=== PATIENT | male | born 1945 | race American Indian/Alaskan Native ===

== ENCOUNTER 2019-12-24 20:21 | Inpatient (IN) | payer MEDICARE ==
[2019-12-24 20:54] LABS: Basophils % (Auto) 0.4 % (0.0-1.8); Eosinophils # (Auto) 0.2 K/mm3 (0.0-0.4); Eosinophils % (Auto) 2.4 % (0.0-4.3); Hematocrit 45.6 % (35.5-45.6); Hemoglobin 15.5 gm/dl (11.8-15.2); Lymphocytes # (Auto) 1.5 K/mm3 (1.2-5.4); Lymphocytes % (Auto) 18.5 % (13.4-35.0); Mean Corpuscular HGB Conc 34 % (32-34); Mean Corpuscular Volume 89 fl (84-94); Monocytes # (Auto) 0.6 K/mm3 (0.0-0.8); Monocytes % (Auto) 7.3 % (0.0-7.3); Platelet Count 313 K/mm3 (140-440); Red Blood Count 5.11 M/mm3 (3.65-5.03); Red Cell Distribution Width 13.7 % (13.2-15.2)
[2019-12-24 21:14] LABS: BUN/Creatinine Ratio 22; Blood Urea Nitrogen 20 mg/dL (9-20); Calcium 9.1 mg/dL (8.4-10.2); Hemolysis Index 7
[2019-12-24 21:36] LABS: Chol/HDL Ratio 5.97 %; HDL Cholesterol 38 mg/dL (40-59); LDL Cholesterol,Direct 172 mg/dL (50-130)
--- NOTE | 2019-12-24 21:54 | XRay Report ---
CHEST 2 VIEWS INDICATION / CLINICAL INFORMATION: Chest Pain. COMPARISON: None available. FINDINGS: SUPPORT DEVICES: None. HEART / MEDIASTINUM: No significant abnormality. LUNGS / PLEURA: No significant pulmonary or pleural abnormality. No pneumothorax. ADDITIONAL FINDINGS: No significant additional findings. IMPRESSION: No acute finding. Signer Name: Jose Alejandro Haley MD Signed: 12/24/2019 9:50 PM Workstation Name: [id number]
--- NOTE | 2019-12-24 22:22 | Emergency Department Report ---
ED Chest Pain HPI - General Chief Complaint: Chest Pain Stated Complaint: CHEST PAIN PUI?: No Time Seen by Provider: 12/24/19 22:10 Source: patient, EMS Mode of arrival: Ambulatory Limitations: No Limitations - History of Present Illness Initial Comments: Patient is a 74-year-old male that presents emergency room with complaints of chest pain or shortness of breath. Patient states that his chest pain started approximately 7 PM tonight. Patient states his chest pain was a 7 out of 10. Patient states after the nitro his chest pain has resolved. Patient states that the chest pain was better with rest and worse with exertion. Patient states he also has shortness of breath which was better with rest and worse with exertion. Patient states he took 325 aspirin and an 81 mg aspirin at the same time just prior to leaving his house. Patient states he was brought by EMS. Patient states that the nitro was given to him by EMS. Patient states 30 minutes after the nitro his pain resolved. MD Complaint: chest pain -: Sudden Onset: during rest Pain Location: substernal, left chest Pain Radiation: none Severity scale (0 -10): 7 Consistency: now resolved Improves With: nitroglycerin, rest Worsens With: exertion re: dyspnea. denies: nausea, vomting, diaphoresis, sense of impending doom Other Symptoms: denies: cough, fever, syncope, rash, acid taste in mouth, leg swelling, palpitations, burping Treatments Prior to Arrival: aspirin, nitroglycerin Aspirin use within the Past 7 Days: (0) No - Related Data On Oral Contraceptives: No Allergies Allergy/AdvReac Type Severity Reaction Status Date / Time No Known Allergies Allergy Verified 12/24/19 22:30 Heart Score - HEART Score History: Moderately suspicious EKG: Non-specific Age: > 65 Risk factors: No known risk factors Troponin: 1-3x normal limit HEART Score: 5 ED Review of Systems ROS: Stated complaint: CHEST PAIN Other details as noted in HPI Constitutional: denies: chills, fever Eyes: denies: eye pain, eye discharge, vision change ENT: denies: ear pain, throat pain Respiratory: shortness of breath. denies: cough, wheezing Cardiovascular: chest pain. denies: palpitations Endocrine: no symptoms reported Gastrointestinal: denies: abdominal pain, nausea, diarrhea Genitourinary: denies: urgency, dysuria Musculoskeletal: denies: back pain, joint swelling, arthralgia Skin: denies: rash, lesions Neurological: denies: headache, weakness, paresthesias Psychiatric: denies: anxiety, depression Hematological/Lymphatic: denies: easy bleeding, easy bruising ED Past Medical Hx - Past Medical History Previous Medical History?: No - Surgical History Past Surgical History?: Yes Additional Surgical History: Left shoulder 10/2019 - Family History Family history: no significant - Social History Smoking Status: Never Smoker Substance Use Type: Marijuana ED Physical Exam - General Limitations: No Limitations General appearance: alert, in no apparent distress - Head Head exam: Present: atraumatic, normocephalic - Eye Eye exam: Present: normal appearance - ENT ENT exam: Present: mucous membranes moist - Neck Neck exam: Present: normal inspection - Respiratory Respiratory exam: Present: normal lung sounds bilaterally. Absent: respiratory distress, wheezes, rales - Cardiovascular Cardiovascular Exam: Present: regular rate, normal rhythm. Absent: systolic murmur, diastolic murmur, rubs, gallop - GI/Abdominal GI/Abdominal exam: Present: soft, normal bowel sounds - Rectal Rectal exam: Present: deferred - Extremities Exam Extremities exam: Present: normal inspection - Back Exam Back exam: Present: normal inspection - Neurological Exam Neurological exam: Present: alert, oriented X3 - Psychiatric Psychiatric exam: Present: normal affect, normal mood - Skin Skin exam: Present: warm, dry, intact, normal color. Absent: rash ED Course Vital Signs 12/24/19 12/24/19 20:28 22:45 Temperature 98.1 F Pulse Rate 105 H 80 Respiratory 18 Rate Blood Pressure 140/89 152/88 O2 Sat by Pulse 96 Oximetry - Reevaluation(s) Reevaluation #1: I discussed all results with patient. I discussed plan of care with patient. Patient agrees with plan of care and admission. Patient to be admitted to the hospitalist service. 12/24/19 22:28 - Consultations Consultation #1: Discussed case with Dr. Garg, cardiology. Dr. Garg recommends heparin drip, Nitropaste, beta-linwood and statin and admission to the hospitalist. 12/24/19 22:19 Consultation #2: Hospitalist consulted for admission. Hospitalist to admit patient. 12/24/19 22:28 EARNEST score - Earnest Score Age > 65: (1) Yes Aspirin use within the Past 7 Days: (0) No 3 or more CAD Risk Factors: (0) No 2 or more Angina events in past 24 hrs: (0) No Known CAD with more than 50% Stenosis: (0) No Elevated Cardiac Markers: (1) Yes ST Deviation Greater than 0.5mm: (0) No EARNEST Score: 2 ED Medical Decision Making - Lab Data Result diagrams: 12/24/19 22:45 12/24/19 20:43 - EKG Data -: EKG Interpreted by Me EKG shows normal: sinus rhythm, axis, intervals, QRS complexes, ST-T waves Rate: normal - Radiology Data Radiology results: report reviewed CHEST 2 VIEWS INDICATION / CLINICAL INFORMATION: Chest Pain. COMPARISON: None available. FINDINGS: SUPPORT DEVICES: None. HEART / MEDIASTINUM: No significant abnormality. LUNGS / PLEURA: No significant pulmonary or pleural abnormality. No pneumo thorax. ADDITIONAL FINDINGS: No significant additional findings. IMPRESSION: No acute finding. - Medical Decision Making Patient is a 74-year-old male that presents emergency room with complaints of chest pain and shortness of breath. Patient states his chest pain started at 7 PM the day of visit. Patient states he took aspirin and was given nitro by EMS. Patient states 30 minutes after taking the nitro his pain resolved. Patient's labs were done and were essentially unremarkable except for elevated troponin. EKG shows no STEMI. I discussed the case with cardiology and cardiology recommends medical admission and place the patient on heparin drip, Lipitor, Nitropaste. Cardiology also recommends admission to the hospitalist service and n.p.o. for possible cath in the morning. Patient placed on a heparin drip according to the heparin protocol. Patient admitted to the hospitalist service and into the ICU. - Differential Diagnosis NSTEMI, chest pain, ACS, shortness of breath Critical Care Time: Yes Critical care time in (mins) excluding proc time.: 45 Critical care attestation.: If time is entered above; I have spent that time in minutes in the direct care of this critically ill patient, excluding procedure time. Critical Care Time: 45 minutes ED Disposition Clinical Impression: NSTEMI (non-ST elevated myocardial infarction), Elevated troponin, SOB (shortness of breath) Chest pain Qualifiers: Chest pain type: unspecified Qualified Code(s): R07.9 - Chest pain, unspecified Hyperlipemia Qualifiers: Hyperlipidemia type: unspecified Qualified Code(s): E78.5 - Hyperlipidemia, unspecified Disposition: 09 OP ADMIT IP TO THIS HOSP Is pt being admited?: Yes Does the pt Need Aspirin: No Condition: Critical Time of Disposition: 22:47
[2019-12-24] MEDS ORDERED: HEPARIN 10,000 UNITS/10 ML VIAL IV ONE (22:25)
[2019-12-24] MEDS ORDERED: NITROGLYCERIN 2% OINT 1 GM TP ONE (22:25)
[2019-12-24] MEDS: HEPARIN/ 0.45% NACL DRIP 25,000 UNIT/500 ML BAG IV SCH (22:45)
[2019-12-24 23:00] LABS: Hematocrit 44.5 % (35.5-45.6); Hemoglobin 14.8 gm/dl (11.8-15.2)
[2019-12-24 23:11] LABS: INR 1.24 (0.87-1.13)
[2019-12-25] MEDS ORDERED: NITROGLYCERIN 0.4 MG TAB SUBL SL PRN (00:06)
[2019-12-25] MEDS ORDERED: MORPHINE 2 MG/1 ML INJ IV PRN (00:06)
--- NOTE | 2019-12-25 00:56 | History and Physical Report ---
History of Present Illness Date of examination: 12/24/19 Date of admission: 12/24/19 22:44 Chief complaint: Chest pain History of present illness: 74-year-old male with no significant past medical history presenting to the emergency room today complaining of shortness of breath and chest pain. Shortness of breath was said to have started suddenly while climbing the staircase at home. He thereafter started having chest pain which was left- sided. Chest pain is said to be worse on exertion and feels better with resting. On a scale of 10 pain was about 7/10. He took some aspirin prior to coming to the emergency room and was also given some sublingual nitro by EMS in route to the hospital. Patient felt much better upon arrival. Patient indicates that he had a similar episode about a week ago and he took some aspirin and the pain was said to have resolved. He denies any fever or chills, no nausea vomiting, no abdominal pain, no headache or dizziness. His work-up in the emergency room was significant for elevated troponin. He had no significant EKG findings. Patient's results were discussed with the water and sewer systems superintendent on-call by the ER physician patient has been placed on insulin drip and beta-linwood. Past History Past Medical History: No medical history Past Surgical History: Other (Left shoulder surgery) Social history: other (Occasional marijuana). denies: smoking, alcohol abuse Family history: no significant family history Medications and Allergies Allergies Allergy/AdvReac Type Severity Reaction Status Date / Time No Known Allergies Allergy Verified 12/24/19 22:30 Home Medications Medication Instructions Recorded Confirmed Last Taken Type Sertraline [Zoloft] 150 mg PO QDAY 12/25/19 12/25/19 Unknown History Zolpidem 10 mg PO QHS 12/25/19 12/25/19 Unknown History Active Meds: Active Medications Aspirin (Ecotrin) 325 mg PO QDAY LULA Atorvastatin Calcium (Lipitor) 80 mg PO ONCE ONE Stop: 12/25/19 22:01 Heparin Sodium/Sodium Chloride (Heparin/ 0.45% Nacl-25,000 Unit/500 Ml) 25,000 unit in 500 mls @ 20 mls/hr IV TITRATE LULA; Protocol Last Admin: 12/24/19 22:45 Dose: 1,000 units/hr, 20 mls/hr Documented by: Morphine Sulfate (Morphine) 2 mg IV Q5MIN PRN PRN Reason: Chest Pain unrelieved by NTG Nitroglycerin (Nitrostat) 0.4 mg SL Q5M PRN PRN Reason: Chest Pain Sodium Chloride (Sodium Chloride Flush Syringe 10 Ml) 10 ml IV BID LULA Sodium Chloride (Sodium Chloride Flush Syringe 10 Ml) 10 ml IV PRN PRN PRN Reason: LINE FLUSH Review of Systems Constitutional: no fever, no chills Cardiovascular: chest pain, shortness of breath, no palpitations, no syncope, no lightheadedness Respiratory: no cough, no congestion Gastrointestinal: no abdominal pain, no nausea, no vomiting, no diarrhea Genitourinary Male: no dysuria, no hematuria Musculoskeletal: no neck pain, no low back pain Integumentary: no rash, no pruritis Neurological: no headaches, no confusion Exam - Constitutional Vitals: Temp Pulse Resp BP Pulse Ox 98.1 F 80 18 152/88 96 12/24/19 20:28 12/24/19 22:45 12/24/19 20:28 12/24/19 22:45 12/24/19 20:28 General appearance: Present: no acute distress, well-nourished - EENT Eyes: Present: PERRL, EOM intact ENT: hearing intact, clear oral mucosa, dentition normal - Neck Neck: Present: supple, normal ROM - Respiratory Respiratory effort: normal Respiratory: bilateral: CTA - Cardiovascular Rhythm: regular Heart Sounds: Present: S1 & S2 - Extremities Extremities: no ischemia, pulses intact, No edema, Full ROM Peripheral Pulses: within normal limits - Abdominal General gastrointestinal: Present: soft, non-tender, non-distended, normal bowel sounds - Musculoskeletal Musculoskeletal: strength equal bilaterally - Psychiatric Psychiatric: appropriate mood/affect, intact judgment & insight, cooperative - Neurologic Neurologic: CNII-XII intact, moves all extremities Results - Labs CBC & Chem 7: 12/25/19 01:33 12/25/19 01:33 Labs: Abnormal lab results 12/24/19 12/24/19 12/24/19 Range/Units 20:43 20:43 22:45 RBC 5.11 H (3.65-5.03) M/mm3 Hgb 15.5 H (11.8-15.2) gm/dl Seg Neutrophils % 71.4 H (40.0-70.0) % PT (12.2-14.9) Sec. INR (0.87-1.13) APTT (24.2-36.6) Sec. Glucose 124 H (75-100) mg/dL Troponin T 0.059 H 0.079 H D (0.00-0.029) ng/mL Triglycerides 168 H (2-149) mg/dL Cholesterol 227 H (50-199) mg/dL LDL Cholesterol Direct 172 H (50-130) mg/dL HDL Cholesterol 38 L (40-59) mg/dL 12/24/19 Range/Units 22:45 RBC (3.65-5.03) M/mm3 Hgb (11.8-15.2) gm/dl Seg Neutrophils % (40.0-70.0) % PT 15.3 H (12.2-14.9) Sec. INR 1.24 H (0.87-1.13) APTT 206.0 H* (24.2-36.6) Sec. Glucose (75-100) mg/dL Troponin T (0.00-0.029) ng/mL Triglycerides (2-149) mg/dL Cholesterol (50-199) mg/dL LDL Cholesterol Direct (50-130) mg/dL HDL Cholesterol (40-59) mg/dL Assessment and Plan - Patient Problems (1) NSTEMI (non-ST elevated myocardial infarction) Current Visit: Yes Status: Acute Plan to address problem: Patient admitted into the intensive care unit and has been started on heparin drip. We will schedule for echocardiogram and stress test in the a.m. We will place a consult to cardiology for further evaluation and recommendation. (2) DVT prophylaxis Current Visit: Yes Status: Acute Plan to address problem: Patient currently on anticoagulation. (3) Full code status Current Visit: Yes Status: Acute
[2019-12-25] MEDS ORDERED: METOPROLOL TARTRATE 5 MG/5 ML INJ IV ONE ×2 (01:08→01:44)
[2019-12-25 01:49] LABS: Basophils % (Auto) 0.6 % (0.0-1.8); Eosinophils # (Auto) 0.2 K/mm3 (0.0-0.4); Eosinophils % (Auto) 2.6 % (0.0-4.3); Hematocrit 42.4 % (35.5-45.6); Hemoglobin 14.3 gm/dl (11.8-15.2); Mean Corpuscular HGB Conc 34 % (32-34); Mean Corpuscular Volume 90 fl (84-94); Monocytes # (Auto) 0.6 K/mm3 (0.0-0.8); Monocytes % (Auto) 7.1 % (0.0-7.3); Platelet Count 279 K/mm3 (140-440); Red Blood Count 4.73 M/mm3 (3.65-5.03); Red Cell Distribution Width 13.4 % (13.2-15.2)
[2019-12-25 02:07] LABS: BUN/Creatinine Ratio 21; Blood Urea Nitrogen 19 mg/dL (9-20); Calcium 8.9 mg/dL (8.4-10.2); Hemolysis Index 3
--- NOTE | 2019-12-25 08:19 | Progress Note ---
Hospitalist Physical - Constitutional Vitals: Temp Pulse Resp BP Pulse Ox 98.1 F 62 16 113/74 96 12/24/19 20:28 12/25/19 06:00 12/25/19 06:00 12/25/19 06:00 12/25/19 06:00 General appearance: Present: no acute distress, well-nourished EARNEST score - Earnest Score Age > 65: (1) Yes Aspirin use within the Past 7 Days: (0) No 3 or more CAD Risk Factors: (0) No 2 or more Angina events in past 24 hrs: (0) No Known CAD with more than 50% Stenosis: (0) No Elevated Cardiac Markers: (1) Yes ST Deviation Greater than 0.5mm: (0) No EARNEST Score: 2 Results - Labs CBC & Chem 7: 12/25/19 01:33 12/25/19 01:33 Labs: Laboratory Last Values WBC 8.0 K/mm3 (4.5-11.0) 12/25/19 01:33 RBC 4.73 M/mm3 (3.65-5.03) 12/25/19 01:33 Hgb 14.3 gm/dl (11.8-15.2) 12/25/19 01:33 Hct 42.4 % (35.5-45.6) 12/25/19 01:33 MCV 90 fl (84-94) 12/25/19 01:33 MCH 30 pg (28-32) 12/25/19 01:33 MCHC 34 % (32-34) 12/25/19 01:33 RDW 13.4 % (13.2-15.2) 12/25/19 01:33 Plt Count 279 K/mm3 (140-440) 12/25/19 01:33 Lymph % (Auto) 25.0 % (13.4-35.0) 12/25/19 01:33 [place] % (Auto) 7.1 % (0.0-7.3) 12/25/19 01:33 Eos % (Auto) 2.6 % (0.0-4.3) 12/25/19 01:33 Baso % (Auto) 0.6 % (0.0-1.8) 12/25/19 01:33 Lymph # 2.0 K/mm3 (1.2-5.4) 12/25/19 01:33 [place] # 0.6 K/mm3 (0.0-0.8) 12/25/19 01:33 Eos # 0.2 K/mm3 (0.0-0.4) 12/25/19 01:33 Baso # 0.0 K/mm3 (0.0-0.1) 12/25/19 01:33 Seg Neutrophils % 64.7 % (40.0-70.0) 12/25/19 01:33 Seg Neutrophils # 5.2 K/mm3 (1.8-7.7) 12/25/19 01:33 PT 15.3 Sec. (12.2-14.9) H 12/24/19 22:45 INR 1.24 (0.87-1.13) H 12/24/19 22:45 APTT 206.0 Sec. (24.2-36.6) H* 12/24/19 22:45 Heparin Anti-Xa Level 0.39 U.I./ml (0.3-0.7) 12/25/19 05:41 Sodium 142 mmol/L (137-145) 12/25/19 01:33 Potassium 3.9 mmol/L (3.6-5.0) 12/25/19 01:33 Chloride 103.1 mmol/L (98-107) 12/25/19 01:33 Carbon Dioxide 26 mmol/L (22-30) 12/25/19 01:33 Anion Gap 17 mmol/L 12/25/19 01:33 BUN 19 mg/dL (9-20) 12/25/19 01:33 Creatinine 0.9 mg/dL (0.8-1.5) 12/25/19 01:33 Estimated GFR > 60 ml/min 12/25/19 01:33 BUN/Creatinine Ratio 21 % 12/25/19 01:33 Glucose 121 mg/dL (75-100) H 12/25/19 01:33 Calcium 8.9 mg/dL (8.4-10.2) 12/25/19 01:33 Troponin T 0.079 ng/mL (0.00-0.029) H 12/25/19 05:41 Triglycerides 168 mg/dL (2-149) H 12/24/19 20:43 Cholesterol 227 mg/dL (50-199) H 12/24/19 20:43 LDL Cholesterol Direct 172 mg/dL (50-130) H 12/24/19 20:43 HDL Cholesterol 38 mg/dL (40-59) L 12/24/19 20:43 Cholesterol/HDL Ratio 5.97 % 12/24/19 20:43 Active Medications - Current Medications Current Medications: Generic Name Dose Route Start Last Admin Trade Name Freq PRN Reason Stop Dose Admin Aspirin 325 mg 12/26/19 10:00 Ecotrin PO QDAY LULA Atorvastatin Calcium 80 mg 12/25/19 22:00 Lipitor PO 12/25/19 22:01 ONCE ONE Heparin Sodium/Sodium Chloride 25,000 unit in 500 mls @ 20 mls/hr 12/24/19 23:00 12/24/19 22:45 Heparin/ 0.45% Nacl-25,000 Unit/500 Ml IV 1,000 units/hr TITRATE LULA 20 mls/hr Administration Protocol 1,000 UNITS/HR Morphine Sulfate 2 mg 12/25/19 00:06 Morphine IV Q5MIN PRN Chest Pain unrelieved by NTG Nitroglycerin 0.4 mg 12/25/19 00:06 Nitrostat SL Q5M PRN Chest Pain Sodium Chloride 10 ml 12/25/19 10:00 Sodium Chloride Flush Syringe 10 Ml IV BID LULA Sodium Chloride 10 ml 12/25/19 00:06 Sodium Chloride Flush Syringe 10 Ml IV PRN PRN LINE FLUSH
[2019-12-25] MEDS ORDERED: SODIUM CHLORIDE 0.9% 500 ML 500 ML IV SCH ×2 (10:00→11:30)
[2019-12-25] MEDS ORDERED: SODIUM CHLORIDE 0.9% 500 ML 500 ML ONE (10:00)
--- NOTE | 2019-12-25 10:07 | Consultation ---
History of Present Illness Consult date: 12/25/19 Requesting physician: CINDY SORIANO Consult reason: chest pain History of present illness: The patient is a 74-year-old male with no significant past medical history. He sees a PCP at the [facility]. He presented with c/o chest pain and SOB. Patient states that his chest pain started at approximately 7 PM last night. Pt states that he was walking up some stairs when he noted the onset of his chest pain. Pt describes his chest pain as a midsternal and substernal pressure which was associated with significant SOB. He sat down and the pain did not resolve and thus he decided to call EMS. Patient states his chest pain was a 7 out of 10. Patient states he took 325 aspirin and an 81 mg aspirin at the same time just prior to leaving his house. He was given SL nitro x 1 per EMS en route to ED and he states that his chest pain then resolved. Pt reports one additional episode of chest pain which occurred 2 weeks ago while he was also exerting himself. The pain was alleviated by sitting down to rest. Pt saw his PCP after that episode of chest pain and was scheduled for stress testing at the [facility] on 01/05/2020. Pt denies any palpitations, n/v, diaphoresis, dizziness or syncope. Pt denies any known prior cardiac issues or cardiac w/u. Following arrival, pt noted to have minimally elevated Kay and abnormal ECG c/w ischemia. He was initiated on heparin gtt overnight. Past History Past Medical History: No medical history Past Surgical History: Other (Left shoulder surgery) Social history: other (Occasional marijuana). denies: smoking, alcohol abuse Family history: no significant family history Medications and Allergies Allergies Allergy/AdvReac Type Severity Reaction Status Date / Time No Known Allergies Allergy Verified 12/24/19 22:30 Home Medications Medication Instructions Recorded Confirmed Last Taken Type Sertraline [Zoloft] 150 mg PO QDAY 12/25/19 12/25/19 Unknown History Zolpidem 10 mg PO QHS 12/25/19 12/25/19 Unknown History Active Meds: Active Medications Aspirin (Ecotrin) 325 mg PO QDAY LULA Atorvastatin Calcium (Lipitor) 40 mg PO QHS [facility] Heparin Sodium/Sodium Chloride (Heparin/ 0.45% Nacl-25,000 Unit/500 Ml) 25,000 unit in 500 mls @ 20 mls/hr IV TITRATE LULA; Protocol Last Admin: 12/24/19 22:45 Dose: 1,000 units/hr, 20 mls/hr Documented by: Sodium Chloride (Nacl 0.9% 500 Ml) 500 mls @ 50 mls/hr IV DIRECT LULA Stop: 12/25/19 19:59 Morphine Sulfate (Morphine) 2 mg IV Q5MIN PRN PRN Reason: Chest Pain unrelieved by NTG Nitroglycerin (Nitrostat) 0.4 mg SL Q5M PRN PRN Reason: Chest Pain Sodium Chloride (Sodium Chloride Flush Syringe 10 Ml) 10 ml IV BID LULA Sodium Chloride (Sodium Chloride Flush Syringe 10 Ml) 10 ml IV PRN PRN PRN Reason: LINE FLUSH Review of Systems Constitutional: no weight loss, no weight gain, no fever, no chills, no sweats Ears, nose, mouth and throat: no ear pain, no nose pain, no sinus pressure, no sinus pain Cardiovascular: chest pain, shortness of breath, dyspnea on exertion, no orthopnea, no palpitations, no rapid/irregular heart beat, no edema, no syncope, no lightheadedness, no high blood pressure, no leg edema Respiratory: shortness of breath, dyspnea on exertion, no cough, no congestion, no wheezing, no pain on inspiration Gastrointestinal: no abdominal pain, no nausea, no vomiting, no diarrhea, no constipation, no change in bowel habits Genitourinary Male: no dysuria, no hematuria, no flank pain, no discharge, no urinary frequency, no urinary hesitancy Musculoskeletal: no neck stiffness, no neck pain, no shooting arm pain, no arm numbness/tingling, no low back pain, no shooting leg pain Integumentary: no rash, no pruritis, no redness, no sores, no wounds Neurological: no head injury, no paralysis, no weakness, no parathesias, no numbness, no tingling, no seizures, no syncope Psychiatric: no anxiety Endocrine: no cold intolerance, no heat intolerance Hematologic/Lymphatic: no easy bruising Allergic/Immunologic: no urticaria Physical Examination Vital Signs Temp Pulse Resp BP Pulse Ox 98.1 F 105 H 18 140/89 96 12/24/19 20:28 12/24/19 20:28 12/24/19 20:28 12/24/19 20:28 12/24/19 20:28 General appearance: no acute distress HEENT: Positive: PERRL, Normocephaly, Mucus Membranes Moist Neck: Positive: neck supple, trachea midline Cardiac: Positive: Reg Rate and Rhythm, S1/S2 Lungs: Positive: Decreased Breath Sounds Neuro: Positive: Grossly Intact Abdomen: Negative: Tender Skin: Negative: Rash Musculoskeletal: No Pain Extremities: Absent: edema Results 12/25/19 01:33 12/25/19 01:33 Coagulation 12/24/19 Range/Units 22:45 PT 15.3 H (12.2-14.9) Sec. INR 1.24 H (0.87-1.13) APTT 206.0 H* (24.2-36.6) Sec. Lipids 12/24/19 Range/Units 20:43 Triglycerides 168 H (2-149) mg/dL Cholesterol 227 H (50-199) mg/dL HDL Cholesterol 38 L (40-59) mg/dL Cholesterol/HDL Ratio 5.97 % CBC 12/24/19 12/24/19 12/25/19 Range/Units 20:43 22:45 01:33 WBC 7.9 8.0 (4.5-11.0) K/mm3 RBC 5.11 H 4.73 (3.65-5.03) M/mm3 Hgb 15.5 H 14.8 14.3 (11.8-15.2) gm/dl Hct 45.6 44.5 42.4 (35.5-45.6) % Plt Count 313 294 279 (140-440) K/mm3 Lymph # 1.5 2.0 (1.2-5.4) K/mm3 [place] # 0.6 0.6 (0.0-0.8) K/mm3 Eos # 0.2 0.2 (0.0-0.4) K/mm3 Baso # 0.0 0.0 (0.0-0.1) K/mm3 Comprehensive Metabolic Panel 12/24/19 12/25/19 Range/Units 20:43 01:33 Sodium 142 142 (137-145) mmol/L Potassium 4.0 3.9 (3.6-5.0) mmol/L Chloride 103.5 103.1 (98-107) mmol/L Carbon Dioxide 23 26 (22-30) mmol/L BUN 20 19 (9-20) mg/dL Creatinine 0.9 0.9 (0.8-1.5) mg/dL Glucose 124 H 121 H (75-100) mg/dL Calcium 9.1 8.9 (8.4-10.2) mg/dL - Imaging and Cardiology Echo: pending Cardiac cath: pending EKG: report reviewed, image reviewed EKG interpretations - Telemetry EKG Rhythm: Sinus Rhythm - EKG Sinus rhythms and dysrhythmias: sinus rhythm Repolarization changes or abnormalities: ST or T wave suggestive of ischemia Assessment and Plan Coronary angiography recommended in setting of NSTEMI. Indications, potential risks and benefits of LHC reviewed with pt and he is agreeable to proceed with LHC today. Await findings. Obtain echo. Further recs to follow per hospital course. The patient has been seen in conjunction with Dr. Porras who agrees with the assessment and plan of care. - Patient Problems (1) NSTEMI (non-ST elevated myocardial infarction) Current Visit: Yes Status: Acute (2) Hyperlipemia Current Visit: Yes Status: Chronic Qualifiers: Hyperlipidemia type: unspecified Qualified Code(s): E78.5 - Hyperlipidemia, unspecified
[2019-12-25] MEDS ORDERED: HEPARIN/NS 5000 UNIT/500ML 1,000 ML IR ONE (10:17)
[2019-12-25] MEDS ORDERED: HEPARIN 10,000 UNITS/10 ML VIAL ONE (10:17)
[2019-12-25] MEDS ORDERED: VERAPAMIL 5 MG/2 ML INJ ONE (10:17)
[2019-12-25] MEDS ORDERED: ASPIRIN EC 325 MG TAB PO ONE ×2 (10:27→11:00)
[2019-12-25] MEDS: fentaNYL 100 MCG/2 ML INJ ONE ×2 (10:58→11:02)
[2019-12-25] MEDS: MIDAZOLAM 2 MG/2 ML INJ ONE ×2 (10:58→11:02)
[2019-12-25] MEDS: LIDOCAINE (2%) 20 MG/1 ML VIAL 20 ML MDV INFILTRATI ONE ×2 (11:00→11:14)
[2019-12-25] MEDS ORDERED: NITROGLYCERIN SYRINGE 3 ML ONE (11:08)
[2019-12-25] MEDS ORDERED: HEPARIN/NS 5000 UNIT/500ML 500 ML IR ONE (11:28)
[2019-12-25] MEDS ORDERED: SODIUM CHLORIDE 0.9% 1000 ML 1,000 ML ONE (11:39)
--- NOTE | 2019-12-25 11:50 | Event Note ---
Date: 12/25/19 S/p [facility] this AM which showed multi vessel CAD, IABP placed. Pt to tx to [facility] for possible revascularization. Gavino TORREZ NP / DR. HAMPTON
[2019-12-25] MEDS ORDERED: DOPamine/D5W 800 MG/250 ML 0 MG/0 ML BAG IV ONE (12:00)
[2019-12-25] MEDS ORDERED: NITROGLYCERIN DRIP 50 MG/250 ML BOTTLE ONE (12:00)
--- NOTE | 2019-12-25 12:07 | Event Note ---
Date: 12/25/[address] [facility] this AM which showed multi vessel CAD, IABP was placed. Patient to transfer to [facility] for possible re-vascularization.
[2019-12-25] MEDS: HEPARIN/ 0.45% NACL DRIP 25,000 UNIT/500 ML BAG IV SCH (12:15)
--- NOTE | 2019-12-25 13:22 | Cardiac Catherization Report ---
CARDIAC CATHETERIZATION REPORT INDICATION FOR PROCEDURE: The patient is a 74-year-old -[place] gentleman with no significant past medical history except that he has a recent rotator cuff surgery performed. He is not on any antihypertensive or antilipidemic drugs. He denies any history of hypertension or hyperlipidemia. He is having some shortness of breath for last 2 weeks with exertion, contacted the primary care physician who recommended going to the hospital if he has any further symptoms. Hence, he was evaluated in the Emergency Room at [facility] last night and EKG showed QS complexes in V2 and V3 along with minor ST elevations, which is suggestive of unstable angina, non-STEMI and cardiac enzymes are minimally elevated. It appears the patient may be having unstable angina for last few weeks. Because of his symptomatology and elevated cardiac enzymes, he was brought to the catheterization laboratory in a fasting condition. DESCRIPTION OF PROCEDURE: The patient was prepared in a standard fashion and right radial artery access was obtained after giving local anesthesia. Access was obtained without any problems; however, radial artery continues as a recurrent radial artery and is very small caliber in the upper arm. Considering this, access was changed to right femoral artery. Local anesthesia was given in the right femoral area and under fluoroscopy, right femoral artery punctured using 5-Argentine micropuncture needle. A long 6-Argentine sheath was introduced considering the tortuosity in the iliac arteries. Subsequently, using a 6-Argentine multipurpose catheter, angiograms of the left coronary artery were obtained in multiple views followed by angiograms of the left ventricle done in GUERRA projection. JR4 catheter was used to obtain the angiograms of the right coronary artery. The patient was noted to have severe coronary artery disease involving the left main and proximal LAD and proximal circumflex. Considering his symptomatology and the coronary anatomy, it was felt that the patient would benefit from insertion of an intraaortic balloon pump for stabilization. Hence, a Sensation Plus intraaortic balloon pump was inserted in the right groin in a standard fashion under fluoroscopy. Good deflation and inflation was noted under fluoroscopy. The patient tolerated the procedure well. No hematoma noted in the right radial artery and the right groin. The patient was noted to have severe coronary artery disease including the left main and significant disease in the proximal LAD with sluggish flow in the LAD. Considering this, it was felt that the patient would benefit from immediate revascularization. Hence, discussed with cardiothoracic surgeon at [facility] who accepted the patient for transfer. We will get a critical care ambulance and transfer the patient to the [facility]. At the time of transfer, he is not having any chest pain, hemodynamically stable. Blood pressure has been stable. Started on IV heparin and IV nitroglycerin. The patient was sedated with IV Versed. After evaluating for moderate sedation, he was felt to be appropriate candidate. He was monitored throughout the procedure with pulse oximetry, EKG and hemodynamic monitoring. The patient's sedation started at 10:58 a.m. and ended at 11:45 a.m. Following findings were noted: HEMODYNAMICS: 1. Opening aortic pressure 129/68, left ventricular pressure 125/24. No gradient across the aortic valve. Estimated ejection fraction 50-55%. Left ventriculogram done in GUERRA projection showed normal sized left ventricle. Overall contractility is lower limits of normal to normal. Mitral regurgitation could not be evaluated. 2. Right coronary artery is a nondominant vessel, shows diffuse disease in the proximal and mid third approaching 70%. Large RV branch noted. 3. Left coronary artery: The left coronary artery arises normally from left coronary cusp. There is severe distal stenosis of the left main, which is tapering to 80%. Similarly at the trifurcation into the LAD, circumflex and ramus branches, there is severe disease. LAD has extensive disease extending into the proximal and mid third. There is sluggish flow in the LAD. Circumflex artery with multiple branches and dominant vessel shows significant disease in the proximal part. Also proximal and mid obtuse marginal have significant disease and they are bypassable vessels. LCA is a dominant vessel. 4. Collaterals none. FINAL IMPRESSION: Fairly well preserved LV function with calcifications noted in the left main, LAD and proximal circumflex area. Severe triple vessel disease involving the left main and severe diffuse disease of the proximal and mid LAD, circumflex artery and marginal branches. Distal vessels are bypassable. IABP was inserted because of underlying severe CAD including severe LM disease. At this time, the patient is stable. Continue IV heparin and IV nitroglycerin and will be transferred to [facility] for coronary revascularization by surgical intervention. Findings were explained to the patient and he understands. JOB# [id number] LATISHA/JOYCE CORDERO
[2019-12-25 14:53] VITALS: BP 140/114
--- NOTE | 2019-12-25 17:14 | Discharge Summary ---
Providers - Providers Date of Admission: 12/24/19 22:44 Date of discharge: 12/25/19 Attending physician: GEOVANY HOSKINS MD 12/24/19 22:19 Consult to Physician [CONS] Routine Comment: Consulting Provider: SANDHYA HENAO Physician Instructions: Reason For Exam: cp, abn ekg 12/25/19 Consult to Cardiac Rehabilitation [CONS] Routine Reason For Exam: Phase I 12/25/19 00:10 Consult to Dietitian/Nutrition [CONS] Routine Physician Instructions: Reason For Exam: Reason for Consult: Diet education 12/25/19 00:45 Consult to Physician [CONS] Routine Comment: Spoke with Dr. Valdivia @ 0114 Consulting Provider: ALANNA VALDIVIA Physician Instructions: Reason For Exam: CHEST PAIN WITH NSTEMI Primary care physician: ELASTIC YARN TWISTER Hospitalization Reason for admission: Chest pain Condition: Critical Hospital course: 74-year-old male with no significant past medical history presenting to the emergency room today complaining of shortness of breath and chest pain. Shortness of breath was said to have started suddenly while climbing the staircase at home. He thereafter started having chest pain which was left- sided. Chest pain is said to be worse on exertion and feels better with resting. On a scale of 10 pain was about 7/10. He took some aspirin prior to coming to the emergency room and was also given some sublingual nitro by EMS in route to the hospital. Patient felt much better upon arrival. Patient indicates that he had a similar episode about a week ago and he took some aspirin and the pain was said to have resolved. He denies any fever or chills, no nausea vomiting, no abdominal pain, no headache or dizziness. His work-up in the emergency room was significant for elevated troponin. He had no significant EKG findings. Patient's results were discussed with the water regulator and valve repairer on-call by the ER physician patient has been placed on insulin drip and beta-linwood. S/p LHC this AM which showed multi vessel CAD, IABP was placed. Patient to transfer to [place] for possible re-vascularization. Coronary angiography recommended in setting of NSTEMI. Indications, potential risks and benefits of LHC reviewed with pt and he is agreeable to proceed with LHC today. Await findings. Obtain echo. Further recs to follow per hospital course. The patient has been seen in conjunction with Dr. Porras who agrees with the assessment and plan of care. - Patient Problems (1) NSTEMI (non-ST elevated myocardial infarction) Current Visit: Yes Status: Acute (2) Hyperlipemia Current Visit: Yes Status: Chronic Qualifiers: Hyperlipidemia type: unspecified Qualified Code(s): E78.5 - Hyperlipidemia, unspecified Disposition: DC/TX-02 SHRT-TRM GEN HOSP IP Time spent for discharge: 35 mins Core Measure Documentation - Palliative Care Palliative Care/ Comfort Measures: Not Applicable - Core Measures Any of the following diagnoses?: acute [place] - Acute [place] Discharge Requirements Aspirin at discharge: Yes SERA/ARB for LVSD if EF <40%: Not Applicable Beta linwood at discharge: Yes Statin for LDL = or >100 mg/dl on DC: Not Applicable (Patient was transferred to an outside facility for further treatment.) Exam - Physical Exam Narrative exam: VITAL SIGNS: Reviewed. GENERAL: The patient appears normally developed, Vital signs as documented. HEAD: No signs of head trauma. EYES: Pupils are equal. Extraocular motions intact. EARS: Hearing grossly intact. MOUTH: Oropharynx is normal. NECK: No adenopathy, no JVD. CHEST: Chest with clear breath sounds bilaterally. No wheezes, rales, or rhonchi. CARDIAC: Regular rate and rhythm. S1 and S2, without murmurs, gallops, or rubs. VASCULAR: No Edema. Peripheral pulses normal and equal in all extremities. ABDOMEN: Soft, non tender and non distended. No rebound or guarding, and no masses palpated. Bowel Sounds normal. MUSCULOSKELETAL: Good range of motion of all major joints. Extremities without clubbing, cyanosis or edema. NEUROLOGIC EXAM: Alert and oriented x 3 No focal sensory or strength deficits. Speech normal. Follows commands. PSYCHIATRIC: Mood normal. SKIN: detial exam as documented in skin assessment - Constitutional Vitals: Temp Pulse Resp BP Pulse Ox 97.3 F L 74 12 140/114 97 12/25/19 12:50 12/25/19 14:30 12/25/19 14:30 12/25/19 14:30 12/25/19 14:30 Plan Follow up with: PRIMARY CAREMD [Primary Care Provider] - 3-5 Days
[2019-12-26] MEDS ORDERED: ASPIRIN EC 325 MG TAB PO SCH (10:00)
== END 2019-12-25 15:00 | disposition short-term general hospital (02) | DRG 272 ==
LOC: ED 20:21 → CC1 22:44
PROVIDERS: ADMIT Internal Medicine Geriatric Medicine; ATTEND Internal Medicine
PROC: 4A023N7 Measurement of Cardiac Sampling and Pressure, Left Heart, Percutaneous Approach (ICD-10-PCS; principal; 2019-12-25)
PROC: 5A02210 Assistance with Cardiac Output using Balloon Pump, Continuous (ICD-10-PCS; 2019-12-25)
PROC: B2111ZZ Fluoroscopy of Multiple Coronary Arteries using Low Osmolar Contrast (ICD-10-PCS; 2019-12-25)
PROC: B2151ZZ Fluoroscopy of Left Heart using Low Osmolar Contrast (ICD-10-PCS; 2019-12-25)
DX: I21.4 Non-ST elevation (NSTEMI) myocardial infarction (principal); I25.10 Atherosclerotic heart disease of native coronary artery without angina pectoris; E78.5 Hyperlipidemia, unspecified; Z79.82 Long term (current) use of aspirin
CPT/HCPCS: 33967; 36415; 71046; 80048; 80061; 84484; 85014; 85018; 85025; 85049; 85520; 85610; 85730; 93005; 93458; 96365; 96366; G0378; C1769; C1894; J1265; J1644; J2250; J3010; J7030; J7040; Q9967